=== PATIENT | female | born 1985 | race Caucasian/White ===

== ENCOUNTER 2023-12-27 07:46 | Day surgery (SDC) | payer BC ==
[2023-12-26] MEDS: DOCUMENT DATE & TIME OF BETA-BLOCKER PO ONE (20:00)
[2023-12-27] VITALS (11 sets, daily range): BP systolic 96–114; BP diastolic 60–75; PULSE 67–76; RESP 13–19; TEMP 98.8; O2SAT 96–100
[~2023-12-27] VITALS: Ht 162.6 cm; Wt 68.0 kg
[2023-12-27] MEDS: famotidine 20mg tablet PO ONE (05:30)
[~2023-12-27 07:46] MED LIST: BACL20TA PO; BIOTIN; BUPR-564 PO; CALCIUM; CLOB50SO2 TOP; CLON0.5T4 PO; EREN70AU2 SQ; ESOM20CA PO; ESTR1TAB28 PO; FLUO-81 PO; HYDR-3686 PO; LEVO150T PO; LORA10TA7 PO; MELATONIN PO; MEMA10TA22 PO; MULTIVITAMIN; MUPI22OI30 TP; NALTREXONE PO; ONDA-103 PO; PIME30CR TOP; POTASSIUM; PRAZ1CAP5 PO; TIMO5TAB PO; UBRO100T PO; VITAMIN C; VITAMIN D3; VITAMIN K2; gelatin sponge, absorbable (Gelfoam 100) sponge TP ONE; methylPREDNISolone acetate 80mg/ml inj**IM only ONE; ringers solution, lacted 1,000 ML IV SCH
[2023-12-27] MEDS ORDERED: sevoflurane 250ml liquid IH ONE (09:56)
[2023-12-27] MEDS ORDERED: tranexamic acid 100mg/ml inj. ONE (09:58)
[2023-12-27] MEDS ORDERED: midazolam 1 mg/ML 2ml injection ONE (10:03)
[2023-12-27] MEDS ORDERED: fentaNYL/PF 50MCG/1 ML 2ML syringe ONE (10:03)
[2023-12-27] MEDS ORDERED: meperidine/PF 25mg/ml syringe IV PRN ×3 (10:05)
[2023-12-27] MEDS ORDERED: proCHLORperazine 10 MG/2 ml inj IV PRN (10:05)
[2023-12-27] MEDS ORDERED: enalaprilat dihydrate 2.5mg/2ml vial IV PRN (10:05)
[2023-12-27] MEDS ORDERED: ondansetron/PF 4mg/2ml inj IV PRN (10:05)
[2023-12-27] MEDS ORDERED: labetalol 20mg/4ml (5mg/ml) syringe IV PRN (10:05)
[2023-12-27] MEDS ORDERED: ringers solution, lacted 1,000 ML IV SCH (10:05)
[2023-12-27] MEDS ORDERED: morphine 2 MG/ML inj. syringe IV PRN (10:05)
[2023-12-27] MEDS ORDERED: morphine 4 MG/ML inj SYRINge IV PRN (10:05)
[2023-12-27] MEDS: cocaine 4% topical solution 4ml bottle ONE (10:34)
[2023-12-27] MEDS: oxymetazoline 15 ML nasal spray NS ONE (10:36)
[2023-12-27] MEDS: LIDOcaine 1% w/EPI 1:100,000 inj. MDV 50 ML VIAL ONE (10:37)
[2023-12-27] MEDS: mupirocin 2% ointment 22GM ONE (10:39)
[2023-12-27] MEDS ORDERED: propofol inj 20 ML IV ONE (11:23)
[2023-12-27] MEDS ORDERED: ondansetron/PF 4mg/2ml inj ONE (11:23)
[2023-12-27] MEDS ORDERED: dexamethasone sod phosphate 4mg/ml inj. ONE (11:23)
[2023-12-27] MEDS: acetaminophen 1,000mg/100ml IV 100 ML IV ONE (12:18)
[2023-12-27] MEDS ORDERED: oxymetazoline 15 ML nasal spray NS ONE (12:20)
[2023-12-27] MEDS: mupirocin 2% nasal ointment 1gm UD NS ONE (12:52)
[2023-12-27] MEDS: salt irrigation nasal spray 45 ML SPRAY NS PRN (12:52)
== END 2023-12-27 13:12 | disposition home or self-care (01) ==
LOC: PAS 07:46
PROVIDERS: ATTEND Otolaryngology
DX: J34.2 Deviated nasal septum (principal); J34.3 Hypertrophy of nasal turbinates; E03.9 Hypothyroidism, unspecified; K21.9 Gastro-esophageal reflux disease without esophagitis; G43.909 Migraine, unspecified, not intractable, without status migrainosus; F41.9 Anxiety disorder, unspecified; F32.A Depression, unspecified; I20.9 Angina pectoris, unspecified; I25.2 Old myocardial infarction; Z90.49 Acquired absence of other specified parts of digestive tract; Z90.710 Acquired absence of both cervix and uterus; Z88.8 Allergy status to other drugs, medicaments and biological substances
CPT/HCPCS: 30140; 30520; 31240; 82948; A6258; A6402; J0131; J1100; J2250; J2405; J2704; J3010; J3490; J7030; J7050; J7120; Z7506; Z7508; Z7512; A4618; A6449; A7000; J1010